=== PATIENT | female | born 1955 | race Hispanic/Latino ===

== ENCOUNTER 2021-02-05 17:57 | Emergency (ER) | payer MEDICARE ==
[~2021-02-05] VITALS: Ht 160 cm; Wt 63.5 kg
[2021-02-05 17:59] VITALS: BP 134/84
== END 2021-02-05 20:43 | disposition left against medical advice (07) ==
LOC: EDH 17:57
DX: S61.253A Open bite of left middle finger without damage to nail, initial encounter (principal); W53.11XA Bitten by rat, initial encounter; Y93.89 Activity, other specified; Y92.89 Other specified places as the place of occurrence of the external cause; Y99.8 Other external cause status; Z53.21 Procedure and treatment not carried out due to patient leaving prior to being seen by health care provider

== ENCOUNTER → 2023-08-09 | Outpatient (CLI) | payer OTHER | END | disposition home or self-care (01) | LOC: RAH 11:10 | PROVIDERS: ATTEND Family Medicine | DX: Z12.31 Encounter for screening mammogram for malignant neoplasm of breast (principal) | CPT/HCPCS: 77067 ==